=== PATIENT | male | born 1950 | race African-American/Black ===

== ENCOUNTER 2021-08-09 09:56 | Emergency (ER) | payer MEDICARE ==
[2021-08-09] MEDS ORDERED: Sodium Chloride 0.9% 1000 ML 1,000 ML IV SCH (10:30)
--- NOTE | 2021-08-09 10:31 | ERPHSYRPT ---
- History of Present Illness Time Seen by Provider: 08/09/21 10:30 Historian: patient Physician History: Patient is a 71-year-old male history of diabetes with subcutaneous abdominal injection presents to our ED for evaluation of abdominal pain. Pain described as [id number] throughout his abdomen. Patient complains of tenderness and pain throughout the surface of the abdomen. No trauma. No fever. Symptoms have been ongoing for approximately 1 month. Patient has not seen his primary care doctor for this problem. No associated nausea or vomiting. No chest pain or shortness of breath. No diaphoresis. No diarrhea. Patient voices no other complaints or concerns at this time. Timing/Duration: week(s) (4 weeks) Activities at Onset: none Quality: aching Abdominal Pain Onset Location: generalized abdomen Pain Radiation: no radiation Severity of Pain-Max: moderate Severity of Pain-Current: mild Associated Symptoms: denies symptoms, No chest pain, No diarrhea, No nausea, No neck pain, No shortness of breath, No syncope, No vomiting Previous symptoms: no prior history Allergies/Adverse Reactions: tuberculin, purified protein deriva Allergy (Verified 08/09/21 10:35) tuberculin,PPD,multi-puncture Allergy (Verified 08/09/21 10:35) Home Medications: Atorvastatin Calcium [Lipitor 20MG Tablet] 20 mg PO DAILY 08/09/21 [History] Enalapril Maleate 10 mg [Vasotec 10 MG] 10 mg PO DAILY 08/09/21 [History] Glimepiride [Amaryl] 2 mg PO DAILY 08/09/21 [History] Insulin Degludec [Tresiba Flextouch U-100] 24 units SQ DAILY 08/09/21 [History] tadalafiL [Tadalafil] 5 mg PO DAILY 08/09/21 [History] - Review of Systems Constitutional: No Symptoms, No Fever, No Chills Eyes: No Symptoms Ears, Nose, & Throat: No Symptoms Respiratory: No Symptoms, No Cough, No Dyspnea Cardiac: No Symptoms, No Chest Pain, No Edema, No Syncope Abdominal/Gastrointestinal: No Symptoms, No Abdominal Pain, No Nausea, No Vomiting, No Diarrhea Genitourinary Symptoms: No Symptoms, No Dysuria Musculoskeletal: No Symptoms, No Back Pain, No Neck Pain Skin: No Symptoms, No Rash Neurological: No Symptoms, No Dizziness, No Focal Weakness, No Sensory Changes Psychological: No Symptoms Endocrine: No Symptoms Immunological/Allergic: No Symptoms All Other Systems: Reviewed and Negative - Nursing Vital Signs Nursing Vital Signs: Initial Vital Signs Temperature 97.3 F 08/09/21 10:18 Pulse Rate 69 08/09/21 10:18 Blood Pressure 178/90 08/09/21 10:18 O2 Sat by Pulse Oximetry 100 08/09/21 10:18 Pain Scale Pain Intensity 5 - Physical Exam General Appearance: no apparent distress, alert Eye Exam: PERRL/EOMI, eyes nml inspection Ears, Nose, Throat Exam: normal ENT inspection, TMs normal, pharynx normal, moist mucous membranes Neck Exam: normal inspection, non-tender, supple, full range of motion Respiratory Exam: normal breath sounds, lungs clear, airway intact, No respiratory distress Cardiovascular Exam: regular rate/rhythm, normal heart sounds, normal peripheral pulses Gastrointestinal/Abdomen Exam: soft, normal bowel sounds, other (Generalized abdominal tenderness. Overlying soft tissue intact. No signs of trauma.), No tenderness, No mass Back Exam: normal inspection, normal range of motion, No CVA tenderness, No vertebral tenderness Extremity Exam: normal inspection, normal range of motion, pelvis stable Neurologic Exam: alert, oriented x 3, cooperative, normal mood/affect, nml cerebellar function, sensation nml, No motor deficits Skin Exam: normal color, warm, dry Lymphatic Exam: No adenopathy SpO2 Interpretation: normal SpO2: 98 O2 Delivery: Room Air - Course Nursing assessment & vital signs reviewed: Yes EKG Interpreted by Me: RATE ([id number]), Sinus Rhythm, NORMAL AXIS, NORMAL INTERVALS - CT Exams Abdomen/Pelvis CT Interpretation: Tele-radiologist Report (Junky distal periesophageal calcified lymph node. Normal appendix. Diverticulosis. 1.5 cm cyst at liver. Possible hemangioma. Spine arthritis. Small right fatty inguinal hernia) Ordered Tests: Active Orders 24 hr Category Date Time Status EKG-ER Only STAT Care 08/09/21 10:17 Active IV Insertion STAT Care 08/09/21 10:17 Active ABDOMEN AND PELVIS W/0 CONTRAS [CT] Stat Exams 08/09/21 10:18 Completed CBC W DIFF Stat Lab 08/09/21 10:49 Completed LIPASE Stat Lab 08/09/21 10:49 Completed TROPONIN Q3H Lab 08/09/21 13:30 Ordered TROPONIN Q3H Lab 08/09/21 16:30 Ordered TROPONIN Q3H Lab 08/09/21 19:30 Ordered TROPONIN Q3H Lab 08/09/21 22:30 Ordered UA W/RFX CULTURE Stat Lab 08/09/21 Completed Medication Summary Generic Name Dose Route Start Last Admin Trade Name Fatoumata PRN Reason Stop Dose Admin Sodium Chloride 1,000 mls @ 100 mls/hr 08/09/21 10:30 08/09/21 11:01 Sodium Chloride 0.9% 1000 Ml IV 09/08/21 10:29 100 mls/hr .Q10H LIDIA Administration Discontinued Medications Generic Name Dose Route Start Last Admin Trade Name Fatoumata PRN Reason Stop Dose Admin Morphine Sulfate 4 mg 08/09/21 10:51 08/09/21 11:01 Morphine Sulfate 4 Mg/Ml Injection IV 08/09/21 10:52 4 mg STAT ONE Administration Morphine Sulfate Confirm 08/09/21 10:59 Morphine Sulfate 4 Mg/Ml Injection Administered 08/09/21 11:00 Dose 4 mg .ROUTE .STK-MED ONE Ondansetron HCl 4 mg 08/09/21 10:51 08/09/21 11:01 Ondansetron Hcl 4 Mg/2 Ml Vial IV 08/09/21 10:52 4 mg STAT ONE Administration Ondansetron HCl Confirm 08/09/21 10:59 Ondansetron Hcl 4 Mg/2 Ml Vial Administered 08/09/21 11:00 Dose 4 mg .ROUTE .STK-MED ONE Lab/Rad Data: Laboratory Result Diagrams 08/09/21 10:49 08/09/21 10:49 Laboratory Results 08/09/21 08/09/21 08/09/21 Range/Units Unknown 10:49 10:49 WBC (4.0-10.5) K/mm3 RBC (4.1-5.6) M/mm3 Hgb (12.5-18.0) gm/dl Hct (42-50) % MCV (78-100) fl MCH (26-32) pg MCHC (32-36) g/dl RDW (11.5-14.0) % Plt Count (150-450) K/mm3 MPV (7.5-11.0) fl Gran % (36.0-66.0) % Eos # (Auto) (0-0.5) Absolute Lymphs (auto) (1.0-4.6) Absolute Monos (auto) (0.0-1.3) Lymphocytes % (24.0-44.0) % Monocytes % (0.0-12.0) % Eosinophils % (0.00-5.0) % Basophils % (0.0-0.4) % Absolute Granulocytes (1.4-6.9) Basophils # (0-0.4) Sodium Direct 136 L (138-146) mmol/L Potassium 3.8 (3.5-4.9) mmol/L Chloride 96 L (98-109) mmol/L Carbon Dioxide 29 (24-29) mmol/L Venous BUN 14 (8-26) mg/dL Creatinine 1.0 (0.6-1.3) mg/dL Glucose 271 H (70-105) mg/dL Ionized Calcium 1.24 (1.12-1.32) mmol/L Troponin 0.00 (0.00-0.03) ng/mL Lipase (23-300) U/L Urinalys Dipstick Clnc MAIN LAB Urine Color YELLOW (YELLOW) Urine Appearance CLEAR (CLEAR) Urine pH 6.0 (5-6) Ur Specific [place] 1.020 (1.005-1.025) POC Urine Protein Conf NEGATIVE (Negative) Urine Ketones NEGATIVE (NEGATIVE) Urine Nitrite NEGATIVE (NEGATIVE) Urine Bilirubin NEGATIVE (NEGATIVE) Urine Urobilinogen 0.2 (0-1) mg/dL Urine Leukocytes NEGATIVE (NEGATIVE) Urine WBC (Auto) 0-2 (0-5) /HPF Urine RBC (Auto) 0-2 (0-2) /HPF U Epithel Cells (Auto) RARE (FEW) /HPF Urine Bacteria (Auto) RARE (NEGATIVE) /HPF Urine RBC NEGATIVE (0-5) Shon/ul Ur Culture Indicated? NO Urine Glucose 500 (NEGATIVE) mg/dL 08/09/21 08/09/21 Range/Units 10:49 10:49 WBC 4.0 (4.0-10.5) K/mm3 RBC 4.97 (4.1-5.6) M/mm3 Hgb 13.5 (12.5-18.0) gm/dl Hct 41.0 L (42-50) % MCV 82.5 (78-100) fl MCH 27.2 (26-32) pg MCHC 32.9 (32-36) g/dl RDW 16.5 H (11.5-14.0) % Plt Count 211 (150-450) K/mm3 MPV 10.8 (7.5-11.0) fl Gran % 56.4 (36.0-66.0) % Eos # (Auto) 0.06 (0-0.5) Absolute Lymphs (auto) 1.38 (1.0-4.6) Absolute Monos (auto) 0.29 (0.0-1.3) Lymphocytes % 34.4 (24.0-44.0) % Monocytes % 7.2 (0.0-12.0) % Eosinophils % 1.5 (0.00-5.0) % Basophils % 0.5 (0.0-0.4) % Absolute Granulocytes 2.26 (1.4-6.9) Basophils # 0.02 (0-0.4) Sodium Direct (138-146) mmol/L Potassium (3.5-4.9) mmol/L Chloride (98-109) mmol/L Carbon Dioxide (24-29) mmol/L Venous BUN (8-26) mg/dL Creatinine (0.6-1.3) mg/dL Glucose (70-105) mg/dL Ionized Calcium (1.12-1.32) mmol/L Troponin (0.00-0.03) ng/mL Lipase 52 (23-300) U/L Urinalys Dipstick Clnc Urine Color (YELLOW) Urine Appearance (CLEAR) Urine pH (5-6) Ur Specific [place] (1.005-1.025) POC Urine Protein Conf (Negative) Urine Ketones (NEGATIVE) Urine Nitrite (NEGATIVE) Urine Bilirubin (NEGATIVE) Urine Urobilinogen (0-1) mg/dL Urine Leukocytes (NEGATIVE) Urine WBC (Auto) (0-5) /HPF Urine RBC (Auto) (0-2) /HPF U Epithel Cells (Auto) (FEW) /HPF Urine Bacteria (Auto) (NEGATIVE) /HPF Urine RBC (0-5) Shon/ul Ur Culture Indicated? Urine Glucose (NEGATIVE) mg/dL - Progress Progress: improved Progress Note: 08/09/21 13:27 Patient reassessed. He feels well. No active abdominal pain. CT scan reveals diffuse colonic diverticulosis. No diverticulitis. Hepatic cyst versus hemangioma. Atherosclerotic disease. Fatty right inguinal hernia. Chronic bony findings. Laboratory work-up essentially nonremarkable. 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 Will discharge per patient's request. Patient agrees to follow-up with primary care doctor within 48 hours for evaluation. Portions of this note were created with voice recognition technology. There may be grammatical, spelling, punctuation or sound alike errors Counseled pt/family regarding: lab results, diagnosis, need for follow-up, rad results - Departure Departure Disposition: Home Clinical Impression: Abdominal pain, Hyperglycemia Condition: Stable Critical Care Time: No Referrals: JOSE LAST MD [Primary Care Provider] - Follow up/PCP as directed Additional Instructions: Discharge/Care Plan RANDALL LEDBETTER JUNIOR was seen on 08/09/21 in the Emergency Room. The patient was counseled regarding Diagnosis,Lab results, Imaging studies, need for follow up and when to return to the Emergency Room. Prescriptions given: Discharge Note I have spoken with the patient and/or caregivers. I have explained the patient's condition, diagnosis and treatment plan based on the information available to me at this time. I have answered the patient's and/or caregiver's questions and addressed any concerns. The patient and/or caregivers have as good understanding of the patient's diagnosis, condition and treatment plan as can be expected at this point. The vital signs have been stable. The patient's condition is stable and appropriate for discharge from the emergency department. The patient will pursue further outpatient evaluation with the primary care physician or other designated or consulting physician as outlined in the discharge instructions. The patient and/or caregivers are agreeable to this plan of care and follow-up instructions have been explained in detail. The patient and/or caregivers have received these instruction. The patient/and or caregivers are aware that any significant change in condition or worsening of symptoms should prompt an immediate return to this or the closest emergency department or call 911.
[2021-08-09] MEDS ORDERED: Zofran 4 MG/2 ML VIAL IV ONE (10:51)
[2021-08-09] MEDS ORDERED: MORPHINE SULFATE 4 MG INJ IV ONE (10:51)
[2021-08-09 10:52] LABS: Absolute Neutrophil Ct (ANC) 2.26 (1.4-6.9); Basophil (Absolute #) 0.02 (0-0.4); Eosinophil % 1.5 % (0.00-5.0); Eosinophil (Absolute #) 0.06 (0-0.5); Hemoglobin 13.5 gm/dl (12.5-18.0); Lymphocyte (Absolute #) 1.38 (1.0-4.6); Lymphocytes % 34.4 % (24.0-44.0); Mean Cell Volume 82.5 fl (78-100); Mean Corpuscular Hemoglobin 27.2 pg (26-32); Mean Corpuscular Hgb Concent. 32.9 g/dl (32-36); Mean Platelet Volume 10.8 fl (7.5-11.0); Monocyte (Absolute #) 0.29 (0.0-1.3); Monocytes % 7.2 % (0.0-12.0); Neutrophil % 56.4 % (36.0-66.0); Platelet Count 211 K/mm3 (150-450); Red Blood Count 4.97 M/mm3 (4.1-5.6); Red Cell Distribution Width 16.5 % (11.5-14.0)
[2021-08-09] MEDS ORDERED: MORPHINE SULFATE 4 MG INJ ONE (10:59)
[2021-08-09] MEDS ORDERED: Zofran 4 MG/2 ML VIAL ONE (10:59)
[2021-08-09] MEDS ORDERED: Sodium Chloride 0.9% 1000 ML 1,000 ML ONE (11:00)
[2021-08-09 11:02] LABS: Appearance CLEAR (CLEAR); Bilirubin NEGATIVE (NEGATIVE); Dipstick done @ ? MAIN LAB; Glucose 500 mg/dL (NEGATIVE); Ketones NEGATIVE (NEGATIVE); Nitrite NEGATIVE (NEGATIVE); Protein,Urine Dip NEGATIVE (Negative); RBC NEGATIVE Ery/ul (0-5); Urobilinogen 0.2 mg/dL (0-1)
[2021-08-09 11:05] LABS: Bacteria RARE /HPF (NEGATIVE); Epithelial Cells RARE /HPF (FEW); RBC 0-2 /HPF (0-2); Urine Cultured Indicated? NO; WBC 0-2 /HPF (0-5)
--- NOTE | 2021-08-09 11:26 | XRAY ---
Indication: Abdomen "tingling" 1.5 month. Multiple contiguous axial images obtained through the abdomen and pelvis without contrast. Comparison: None Lung bases demonstrates minimal dependent atelectasis. No infiltrate or effusion. Heart not enlarged. [place] distal paraesophageal calcified node. Noncontrasted stomach and bowel loops appear nonobstructed with normal appendix. Mild diffuse scattered colonic diverticulosis without diverticulitis. Right lobe liver demonstrates 1.5 cm cyst versus hemangioma. A few tiny splenic calcified granulomas. No free fluid/air. Remaining liver, gallbladder, pancreas, spleen, adrenal glands, kidneys, ureters, and bladder are unremarkable for noncontrast exam. Mild scattered aortoiliac calcifications. Osseous structures intact with mild/moderate degenerative changes throughout the thoracolumbar spine and moderate degenerative changes both hips. 6 mm left superior acetabulum bone island. Small fatty right inguinal hernia. Impression: 1. Diffuse colonic diverticulosis, hepatic cyst versus hemangioma, arteriosclerotic disease, fatty right inguinal hernia, chronic bony findings, and old granulomatous disease. 2. Remaining CT abdomen/pelvis without contrast exam is negative.
[2021-08-09 11:48] LABS: ISTAT K 3.8 mmol/L (3.5-4.9)
[2021-08-09 12:29] VITALS: PULSE 64
[2021-08-09 13:07] VITALS: BP 152/83
[2021-08-09 13:30] VITALS: O2SAT 98
== END 2021-08-09 13:41 | disposition home or self-care (01) ==
LOC: ED 09:56
DX: R10.84 Generalized abdominal pain (principal); E11.65 Type 2 diabetes mellitus with hyperglycemia; R20.2 Paresthesia of skin
CPT/HCPCS: 36415; 74176; 80047; 81015; 83690; 84484; 85025; 93005; 96374; 96375; 99284; J2270; J2405